=== PATIENT | male | born 1980 | race Caucasian/White ===

== ENCOUNTER 2017-09-22 11:47 | Emergency (ER) | payer OTHER ==
[~2017-09-22] VITALS: Ht 167.6 cm; Wt 67.6 kg
[2017-09-22 11:52] VITALS: TEMP 36.7; Ht 167.6 cm; Wt 67.6 kg
[2017-09-22 12:16] VITALS: O2SAT 98
[2017-09-22 12:24] LABS: BASO % 0.3 %; BASO ABS # 0.02 K/uL (0-0.2); EOS % 1.1 %; EOS ABS # 0.08 K/uL (0-0.5); HEMATOCRIT 47.2 % (42-52); HEMOGLOBIN 17.3 g/dL (14.0-18.0); IG# 0.01 K/uL (0.00-0.02); LYMPH % 24.8 %; LYMPH ABS # 1.78 K/uL (1.2-3.4); MEAN CELL VOLUME 85.4 fL (80-100); MEAN CORPUSCULAR HEMOGLOBIN 31.3 pg (25-34); MEAN CORPUSCULAR HGB CONC 36.7 g/dl (32-36); MEAN PLATELET VOLUME 9.5 fL (7.4-10.4); MONO % 8.1 %; MONO ABS # 0.58 K/uL (0.11-0.59); NEUT % 65.6 %; NEUT ABS # 4.72 K/uL (1.4-6.5); PLATELET COUNT 220 K/uL (130-400); RED CELL DISTRIBUTION WIDTH CV 13.2 % (11.5-14.5); RED CELL DISTRIBUTION WIDTH SD 41.3 fL (36.4-46.3); WHITE BLOOD COUNT 7.19 K/uL (4.8-10.8)
[2017-09-22 12:32] LABS: PTT PATIENT 28.7 SECONDS (21.0-31.0)
[2017-09-22 12:48] LABS: ALBUMIN 4.1 gm/dl (3.4-5.0); ALKALINE PHOSPHATASE 109 U/L (45-117); ALT/SGPT 29 U/L (12-78); AST/SGOT 16 U/L (15-37); BLOOD UREA NITROGEN 12 mg/dl (7-18); CALCIUM 8.6 mg/dl (8.5-10.1); CARBON DIOXIDE 25 mmol/L (21-32); CREATININE 0.92 mg/dl (0.60-1.40); GLUCOSE 92 mg/dl (70-99); LIPASE 187 U/L (73-393); POTASSIUM 4.3 mmol/L (3.5-5.1); SODIUM 138 mmol/L (136-145); TOTAL PROTEIN 7.8 gm/dl (6.4-8.2)
--- NOTE | 2017-09-22 13:03 | DIAGNOSTIC IMAGING REPORT ---
SINGLE VIEW CHEST CLINICAL HISTORY: Atypical chest pain. FINDINGS: An AP, portable, upright chest radiograph is obtained. No prior studies are available for comparison at the time of dictation. The cardiomediastinal silhouette is unremarkable. The lungs and pleural spaces are clear. No pneumothorax is seen. The bony thorax is grossly intact. IMPRESSION: No active disease in the chest. Electronically signed by: Martínez Rodriguez M.D. 09/22/2017 1:02 PM Dictated Date/Time: 09/22/2017 1:02 PM
[2017-09-22 14:08] VITALS: BP 93/68; PULSE 71; O2SAT 97
--- NOTE | 2017-09-22 16:40 | EMERGENCY ROOM VISIT NOTE ---
History First contact with patient: 11:56 Chief Complaint: CHEST PAIN Stated Complaint: PAIN IN L SIDE OF CHEST & ARM Nursing Triage Summary: Pt reports left sided intermittent chest pain for one week History of Present Illness The patient is a 37 year old male who presents to the Emergency Room with complaints of intermittent neck and left arm pain for over a month, and chest pain for the past 1.5 weeks. The patient describes it as a pressure sensation in the left upper chest, and pain that radiates from the neck to the top of the left shoulder and into the left biceps and proximal forearm region. He has noticed some worsening discomfort in the left arm with movement of the neck. He awakens in the morning with stiff necks. The patient reports no prior history of heart disease. He does report a childhood history of asthma. He denies any recent shortness of breath, cough or upper respiratory infection. His father had his first heart attack in his mid 50s. Patient otherwise denies history of hypertension or hypercholesterolemia. He does have a [id number] history of tobacco use, no smoking within the past 3 years. The patient does report a prior history of snorting cocaine. He denies any current or prior IV drug abuse. He currently rates his discomfort a 5 out of 10. Review of Systems HEENT: Denies dizziness, visual problems, hearing loss, tinnitus. Denies difficulty swallowing or oral lesions. PULMONARY: Denies cough, shortness of breath, sputum production or hemoptysis. CARDIOVASCULAR: Denies palpitations, dyspnea on exertion, orthopnea or peripheral edema. Otherwise see HPI for current chest pain symptoms. GASTROINTESTINAL: Denies diarrhea, constipation, nausea, vomiting, or abdominal pain. GENITOURINARY: Denies dysuria, frequency, urgency or nocturia. NEUROLOGIC: Denies history of epilepsy, CVA, TIA or chronic headaches. MUSCULOSKELETAL: Denies history of joint tenderness/swelling. SKIN: Denies rashes or lesions. PSYCHIATRIC: Denies history of depression or mental illness. ENDOCRINE: Denies history of diabetes or thyroid disorders. Past Medical/Surgical History Medical Problems: (1) No significant past medical history Surgical Problems: (1) No history of previous surgery Family History Unremarkable Social History Smoking Status: Former Smoker Alcohol Use: occasionally Drug Use: none Marital Status: single Housing Status: lives alone Occupation Status: employed Current/Historical Medications No Active Prescriptions or Reported Meds Physical Exam Vital Signs Date Time Temp Pulse Resp B/P (MAP) Pulse Ox O2 Delivery O2 Flow Rate FiO2 09/22/17 14:08 71 13 93/68 97 Room Air 09/22/17 13:10 54 16 101/68 98 Room Air 09/22/17 12:16 98 Room Air 09/22/17 12:16 98 Room Air 09/22/17 12:16 98 Room Air 09/22/17 12:12 69 09/22/17 11:52 36.7 107 18 125/83 96 Room Air Physical Exam CONSTITUTIONAL: Healthy and well nourished. Alert and oriented X 3 with positive affect. Patient does not appear in any acute distress. HEENT: Normocephalic, atraumatic. Pupils equal, round and reactive. NECK: Right lateral gaze causes discomfort at the base of the neck and onto the top of the left shoulder. No nuchal rigidity. No JVD or carotid bruits. RESPIRATORY: Clear to auscultation bilaterally with no wheezing, crackles, rhonchi or stridor. The breathing does not worsen his discomfort. CARDIOVASCULAR: Regular rate and rhythm with no murmurs, rubs or gallops. GASTROINTESTINAL: Bowel sounds present in all quadrants. Soft and nontender to palpation. No hepatosplenomegaly. Negative CVA tenderness. MUSCULOSKELETAL: Full range of motion of all joints without discomfort. Patient has no focal tenderness to palpation over the left shoulder, deltoid or other region. Equal handgrip bilaterally. Patient has no focal tenderness to palpation of the left anterior chest wall. Patient has mild tenderness to palpation over the left medial scapular border. INTEGUMENTARY: No rash or other significant dermatologic conditions noted. HEMATOLOGIC: No ecchymosis or petechiae. NEUROLOGIC: Cranial nerves II-XII grossly intact. No focal neurologic deficits noted. Medical Decision & Procedures ER Provider Diagnostic Interpretation: My interpretation of an ECG shows a sinus bradycardia of [address] elevation or other conduction abnormalities. My interpretation of a portable chest x-ray does not show any consolidations, pneumothorax or cardiac prominence. Radiologist report is as follows: SINGLE VIEW CHEST CLINICAL HISTORY: Atypical chest pain. FINDINGS: An AP, portable, upright chest radiograph is obtained. No prior studies are available for comparison at the time of dictation. The cardiomediastinal silhouette is unremarkable. The lungs and pleural spaces are clear. No pneumothorax is seen. The bony thorax is grossly intact. IMPRESSION: No active disease in the chest. Laboratory Results 09/22/17 12:10 Red Blood Count 5.53, Mean Corpuscular Volume 85.4, Mean Corpuscular Hemoglobin 31.3, Mean Corpuscular Hemoglobin Concent 36.7, Mean Platelet Volume 9.5, Neutrophils (%) (Auto) 65.6, Lymphocytes (%) (Auto) 24.8, Monocytes (%) (Auto) 8.1, Eosinophils (%) (Auto) 1.1, Basophils (%) (Auto) 0.3, Neutrophils # (Auto) 4.72, Lymphocytes # (Auto) 1.78, Monocytes # (Auto) 0.58, Eosinophils # (Auto) 0.08, Basophils # (Auto) 0.02 09/22/17 12:10 Test 09/22/17 12:10 White Blood Count 7.19 K/uL (4.8-10.8) Red Blood Count 5.53 M/uL (4.7-6.1) Hemoglobin 17.3 g/dL (14.0-18.0) Hematocrit 47.2 % (42-52) Mean Corpuscular Volume 85.4 fL (80-100) Mean Corpuscular Hemoglobin 31.3 pg (25-34) Mean Corpuscular Hemoglobin Concent 36.7 g/dl (32-36) Platelet Count 220 K/uL (130-400) Mean Platelet Volume 9.5 fL (7.4-10.4) Neutrophils (%) (Auto) 65.6 % Lymphocytes (%) (Auto) 24.8 % Monocytes (%) (Auto) 8.1 % Eosinophils (%) (Auto) 1.1 % Basophils (%) (Auto) 0.3 % Neutrophils # (Auto) 4.72 K/uL (1.4-6.5) Lymphocytes # (Auto) 1.78 K/uL (1.2-3.4) Monocytes # (Auto) 0.58 K/uL (0.11-0.59) Eosinophils # (Auto) 0.08 K/uL (0-0.5) Basophils # (Auto) 0.02 K/uL (0-0.2) RDW Standard Deviation 41.3 fL (36.4-46.3) RDW Coefficient of Variation 13.2 % (11.5-14.5) Immature Granulocyte % (Auto) 0.1 % Immature Granulocyte # (Auto) 0.01 K/uL (0.00-0.02) Prothrombin Time 11.0 SECONDS (9.0-12.0) Prothromb Time International Ratio 1.0 (0.9-1.1) Activated Partial Thromboplast Time 28.7 SECONDS (21.0-31.0) Partial Thromboplastin Ratio 1.1 Anion Gap 6.0 mmol/L (3-11) Est Creatinine Clear Calc Drug Dose 100.1 ml/min Estimated GFR () 123.6 Estimated GFR (Non- 106.6 BUN/Creatinine Ratio 12.7 (10-20) Calcium Level 8.6 mg/dl (8.5-10.1) Total Bilirubin 0.7 mg/dl (0.2-1) Direct Bilirubin 0.2 mg/dl (0-0.2) Aspartate Amino Transf (AST/SGOT) 16 U/L (15-37) Alanine Aminotransferase (ALT/SGPT) 29 U/L (12-78) Alkaline Phosphatase 109 U/L (45-117) Total Creatine Kinase 159 U/L (39-308) Troponin I < 0.015 ng/ml (0-0.045) Total Protein 7.8 gm/dl (6.4-8.2) Albumin 4.1 gm/dl (3.4-5.0) Lipase 187 U/L (73-393) The above labs were reviewed. Troponin, CBC, partial renal profile, LFTs and lipase are normal. ED Course Patient history and physical exam were performed. Nurse's notes were reviewed. Vital signs were reviewed and were normal. The patient did not appear in any acute distress. Physical exam does show reproduction of neck and left shoulder pain with a right lateral gaze. This is suggestive of cervical radiculitis. However, I did suggest additional workup to rule out acute cardiopulmonary etiology. IV access was established, and labs were drawn. An ECG shows a sinus bradycardia without ST elevation or other conduction abnormalities. Portable chest x-ray was normal. Labs were reviewed to show a normal troponin. Remaining labs were also normal. The patient denied any significant discomfort upon final reevaluation. The case was discussed with Dr. Watkins, ED attending physician, who agrees with workup and outpatient management. The patient was encouraged to take an aspirin 325 mg daily. He was instructed to follow-up with his PCP within the next 2-3 days for recheck. Return to the emergency department for any progressively worsening symptoms. The patient was happy with plan of care, and voiced understanding of all discharge instructions. Medical Decision Patient presents to the emergency department with complaint of left upper chest and shoulder pain. He also complains of pain radiating into the left upper extremity. Given history and physical exam findings, I strongly suspect an acute cervical radiculitis. Workup today is not suggestive of myocardial infarction, pneumonia or abdominal etiologies. Patient does not meet Wells criteria for d-dimer check, and I feel that the risk for pulmonary embolus is low. Laboratory studies are not suggestive of hepatitis, pancreatitis or cholecystitis. Abdominal exam is benign. The patient is also afebrile and has no leukocytosis to suggest infectious etiology. [place] Drug Monitoring Program Search Results: patient reviewed within database, no issues identified Medication Reconcilliation Current Medication List: was personally reviewed by me Blood Pressure Screening Patient's blood pressure: Normal blood pressure Impression Primary Impression: Left sided chest pain Additional Impression: Radiculitis of left cervical region Departure Information Prescriptions No Active Prescriptions or Reported Meds Referrals Kandi Bates M.D. (PCP) Patient Instructions My [facility] Problem Qualifiers
== END 2017-09-22 14:10 | disposition home or self-care (01) ==
LOC: C.EDB 11:47
DX: M54.12 Radiculopathy, cervical region (principal); R07.89 Other chest pain; Z87.891 Personal history of nicotine dependence